=== PATIENT | female | born 1985 | race Caucasian/White ===

== ENCOUNTER 2020-08-08 11:02 | Inpatient (IN) | payer MEDICAID, OTHER ==
[~2020-08-08] VITALS: Ht 161.3 cm; Wt 59.4 kg
[~2020-08-08 11:02] MED LIST: QUET200T PO; QUET25TA PO
[2020-08-08 12:05] LABS: HEMATOCRIT 40.2 % (36-46); HEMOGLOBIN 13.4 g/dL (12.0-16.0); LYMPHOCYTES % (AUTO) 25.2 % (22.0-44.0); MEAN CORPUSCULAR HEMOGLOBIN 29.6 pg (26.0-34.0); MEAN CORPUSCULAR HGB CONC 33.4 G/dL (31.0-37.0); MEAN CORPUSCULAR VOLUME 89 fL (80-100); MONOCYTES # (AUTO) 0.7 K/uL (0.1-1.0); MONOCYTES % (AUTO) 9.2 % (2.0-9.0); NEUTROPHILS # (AUTO) 4.8 K/uL (1.8-7.7); NEUTROPHILS % (AUTO) 61.6 % (40.0-70.0); PLATELET COUNT (AUTO) 257 K/uL (150-450); RED BLOOD CELL COUNT(AUTO) 4.54 MIL/uL (4.00-5.20)
[2020-08-08 12:13] LABS: ANION GAP 5 mmol/L (8-16); CALCIUM, TOTAL 9.3 mg/dL (8.8-10.5); CARBON DIOXIDE 29 mmol/L (22-29); CHLORIDE 104 mmol/L (98-107); CREATININE 0.97 mg/dL (0.60-1.30); GLOMERULAR FILTR. RATE CALC > 60 mL/min (>60); GLUCOSE,RANDOM 74 mg/dL (70-110); POTASSIUM 3.7 mmol/L (3.5-5.1); SODIUM SERUM 138 mmol/L (136-145); UREA NITROGEN, BLOOD 15 mg/dL (7-18)
[2020-08-08 12:19] LABS: ALANINE AMINOTRANSFERASE 19 U/L (12-78); ALBUMIN 3.9 g/dL (3.4-5.0); ALKALINE PHOSPHATASE 58 U/L (46-116); ASPARTATE AMINOTRANSFERASE 13 U/L (15-37); BILIRUBIN,TOTAL 0.9 mg/dL (0.1-1.0); TOTAL PROTEIN, SERUM 7.6 g/dL (6.4-8.2)
[2020-08-08] MEDS ORDERED: QUEtiapine FUMARATE 100 MG TABLET PO ONE (17:00)
[2020-08-08 17:17] LABS: AMPHET/METH SCREEN,URINE POSITIVE (NEGATIVE); BARBITURATE SCREEN, URINE NEGATIVE (NEGATIVE); BENZODIAZEPINES SCREEN,URINE NEGATIVE (NEGATIVE); CANNABINOID SCREEN,URINE POSITIVE (NEGATIVE); COCAINE SCREEN,URINE NEGATIVE (NEGATIVE); METHADONE SCREEN, URINE NEGATIVE (NEGATIVE); OPIATE SCREEN,URINE NEGATIVE (NEGATIVE); PHENCYCLIDINE SCREEN,URINE NEGATIVE (NEGATIVE)
[2020-08-08] MEDS ORDERED: ZOLPIDEM TARTRATE 10 MG TABLET PO PRN (18:45)
[2020-08-08 20:14] LABS: HCG,QUANTITATIVE 1 mIU/mL (0-6)
[2020-08-08 21:40] LABS: COVID AG,FIA SOURCE NASOPHARYNGEAL
[2020-08-08] MEDS ORDERED: MAGNESIUM HYDROXIDE SUSPENSION 30 ML UDCUP PO PRN (22:15)
[2020-08-08] MEDS ORDERED: NICOTINE 14 MG/24 HOUR PATCH TD PRN (22:15)
[2020-08-08] MEDS ORDERED: ONDANSETRON HCL 4 MG TABLET PO PRN (22:15)
[2020-08-08] MEDS ORDERED: LOPERAMIDE HCL 2 MG CAPSULE PO PRN (22:15)
[2020-08-08] MEDS ORDERED: IBUPROFEN 400 MG TABLET PO PRN (22:15)
[2020-08-08] MEDS ORDERED: CloNIDine HCL 0.1 MG TABLET PO PRN (22:15)
[2020-08-08] MEDS ORDERED: ACETAMINOPHEN 325 MG TABLET PO PRN (22:15)
[2020-08-08] MEDS ORDERED: DOCUSATE SODIUM 100 MG CAPSULE PO PRN (22:15)
[2020-08-08] MEDS ORDERED: ALBUTEROL SULFATE HFA 90 MCG/PUFF 8 GM INHALER IH PRN (22:15)
[2020-08-08] MEDS ORDERED: GuaiFENesin/D-METHORPHAN [SUGAR-FREE] 200-20MG/10 ML SYRUP UDCUP PO PRN (22:15)
[2020-08-08] MEDS ORDERED: PETROLATUM,WHITE 28 GM JELLY TP PRN (22:15)
[2020-08-08] MEDS ORDERED: MAG HYDROX/AL HYDROX/SIMETH ES 30 ML SUSPENSION UDCUP PO PRN (22:15)
[2020-08-09 01:20] VITALS: BP 94/60
[2020-08-09] MEDS ORDERED: INFLUENZA VIRUS VACCINE QVS 2020-21 (6MO+)/PF 60 MCG/0.5 ML SYRINGE IM ONE (03:30)
[2020-08-09 08:09] VITALS: BP 109/67
[2020-08-09] MEDS: LORazepam 2 MG TABLET PO PRN (13:23)
[2020-08-09] MEDS: HALOPERIDOL 5 MG TABLET PO PRN (13:23)
[2020-08-09] MEDS: QUEtiapine FUMARATE 100 MG TABLET PO SCH (16:24)
[2020-08-09 18:38] VITALS: BP 122/66
[2020-08-09] MEDS: QUEtiapine FUMARATE 200 MG TABLET PO SCH (20:30)
[2020-08-10 01:53] VITALS: BP 120/67
[2020-08-10 08:07] VITALS: BP_SYST 107; BP_SYST 134; BP_DIAS 67; BP_DIAS 82
[2020-08-10] MEDS: QUEtiapine FUMARATE 100 MG TABLET PO SCH ×2 (08:50→17:00)
[2020-08-10 16:14] VITALS: BP 109/60
[2020-08-10] MEDS: CEPHALEXIN MONOHYDRATE 500 MG CAPSULE PO SCH (18:49)
[2020-08-10] MEDS: SULFAMETHOX/TRIMETH DS 800-160 MG/TABLET PO SCH (18:49)
[2020-08-10] MEDS: QUEtiapine FUMARATE 200 MG TABLET PO SCH (20:25)
[2020-08-11 04:57] VITALS: BP 102/65
[2020-08-11] MEDS: SULFAMETHOX/TRIMETH DS 800-160 MG/TABLET PO SCH ×2 (08:06→16:01)
[2020-08-11] MEDS: CEPHALEXIN MONOHYDRATE 500 MG CAPSULE PO SCH ×3 (08:06→16:01)
[2020-08-11] MEDS: QUEtiapine FUMARATE 100 MG TABLET PO SCH ×2 (08:06→16:01)
[2020-08-11 08:16] VITALS: BP 120/74
[2020-08-11 16:06] VITALS: BP 108/61
[2020-08-11] MEDS: HALOPERIDOL 5 MG TABLET PO PRN (16:14)
[2020-08-11] MEDS: LORazepam 2 MG TABLET PO PRN (16:14)
[2020-08-11] MEDS: BACITRACIN 28 GM OINTMENT TP SCH (20:14)
[2020-08-11] MEDS: QUEtiapine FUMARATE 200 MG TABLET PO SCH (20:23)
[2020-08-12 00:54] VITALS: BP 102/65
[2020-08-12 08:11] VITALS: BP 106/63
[2020-08-12] MEDS: CEPHALEXIN MONOHYDRATE 500 MG CAPSULE PO SCH ×3 (08:24→16:10)
[2020-08-12] MEDS: SULFAMETHOX/TRIMETH DS 800-160 MG/TABLET PO SCH ×2 (08:24→16:09)
[2020-08-12] MEDS: QUEtiapine FUMARATE 100 MG TABLET PO SCH ×2 (08:24→16:10)
[2020-08-12] MEDS: BACITRACIN 28 GM OINTMENT TP SCH ×2 (08:25→17:19)
[2020-08-12 16:10] VITALS: BP 121/77
[2020-08-12] MEDS: QUEtiapine FUMARATE 200 MG TABLET PO SCH (21:00)
[2020-08-13 01:21] VITALS: BP 114/72
[2020-08-13 08:04] LABS: CHOL/HDL RATIO 3.6 (3.9-5.7)
[2020-08-13] MEDS: SULFAMETHOX/TRIMETH DS 800-160 MG/TABLET PO SCH ×2 (08:14→16:28)
[2020-08-13] MEDS: QUEtiapine FUMARATE 100 MG TABLET PO SCH ×2 (08:14→16:29)
[2020-08-13] MEDS: CEPHALEXIN MONOHYDRATE 500 MG CAPSULE PO SCH ×3 (08:14→16:28)
[2020-08-13 08:20] VITALS: BP 118/72
[2020-08-13] MEDS: BACITRACIN 28 GM OINTMENT TP SCH ×2 (08:23→16:28)
[2020-08-13] MEDS: LORazepam 2 MG TABLET PO PRN (12:47)
[2020-08-13] MEDS: HALOPERIDOL 5 MG TABLET PO PRN (12:47)
[2020-08-13 17:47] VITALS: BP 121/80
[2020-08-13] MEDS: QUEtiapine FUMARATE 200 MG TABLET PO SCH (20:20)
[2020-08-14 01:43] VITALS: BP 120/76
[2020-08-14 08:13] VITALS: BP 111/58
[2020-08-14] MEDS: SULFAMETHOX/TRIMETH DS 800-160 MG/TABLET PO SCH ×2 (08:16→16:42)
[2020-08-14] MEDS: QUEtiapine FUMARATE 100 MG TABLET PO SCH ×2 (08:16→16:42)
[2020-08-14] MEDS: CEPHALEXIN MONOHYDRATE 500 MG CAPSULE PO SCH ×3 (08:16→16:42)
[2020-08-14] MEDS: BACITRACIN 28 GM OINTMENT TP SCH ×2 (08:16→16:46)
[2020-08-14 16:22] VITALS: BP 118/75
[2020-08-14] MEDS: QUEtiapine FUMARATE 200 MG TABLET PO SCH (19:59)
[2020-08-15 05:50] VITALS: BP 124/84
[2020-08-15 08:27] VITALS: BP 106/70
[2020-08-15] MEDS: CEPHALEXIN MONOHYDRATE 500 MG CAPSULE PO SCH ×3 (08:54→16:03)
[2020-08-15] MEDS: QUEtiapine FUMARATE 100 MG TABLET PO SCH ×2 (08:54→16:03)
[2020-08-15] MEDS: SULFAMETHOX/TRIMETH DS 800-160 MG/TABLET PO SCH ×2 (08:54→16:03)
[2020-08-15] MEDS: BACITRACIN 28 GM OINTMENT TP SCH ×2 (09:34→16:03)
[2020-08-15] MEDS: LORazepam 2 MG TABLET PO PRN (15:57)
[2020-08-15 16:16] VITALS: BP 119/78
[2020-08-15] MEDS: QUEtiapine FUMARATE 200 MG TABLET PO SCH (20:18)
[2020-08-16 01:57] VITALS: BP 110/71
[2020-08-16 08:29] VITALS: BP 117/68
[2020-08-16] MEDS: FOLIC ACID 1 MG TABLET PO SCH (10:06)
[2020-08-16] MEDS: MULTIVITAMINS WITH MINERALS, THERAPEUTIC TABLET PO SCH (10:06)
[2020-08-16] MEDS: SULFAMETHOX/TRIMETH DS 800-160 MG/TABLET PO SCH ×2 (10:06→17:34)
[2020-08-16] MEDS: QUEtiapine FUMARATE 100 MG TABLET PO SCH ×2 (10:06→17:34)
[2020-08-16] MEDS: CEPHALEXIN MONOHYDRATE 500 MG CAPSULE PO SCH ×3 (10:06→17:34)
[2020-08-16] MEDS: BACITRACIN 28 GM OINTMENT TP SCH ×2 (10:35→17:34)
[2020-08-16] MEDS: THIAMINE 100 MG TABLET PO SCH (11:49)
[2020-08-16] MEDS: LORazepam 2 MG TABLET PO PRN (14:02)
[2020-08-16] MEDS: HALOPERIDOL 5 MG TABLET PO PRN (14:02)
[2020-08-16 17:32] VITALS: BP 103/66
[2020-08-16] MEDS: QUEtiapine FUMARATE 200 MG TABLET PO SCH (20:38)
[2020-08-17 01:08] VITALS: BP 100/71
[2020-08-17] MEDS: THIAMINE 100 MG TABLET PO SCH (08:26)
[2020-08-17] MEDS: FOLIC ACID 1 MG TABLET PO SCH (08:26)
[2020-08-17] MEDS: MULTIVITAMINS WITH MINERALS, THERAPEUTIC TABLET PO SCH (08:26)
[2020-08-17] MEDS: QUEtiapine FUMARATE 100 MG TABLET PO SCH ×2 (08:26→16:35)
[2020-08-17] MEDS: CEPHALEXIN MONOHYDRATE 500 MG CAPSULE PO SCH ×3 (08:26→16:35)
[2020-08-17] MEDS: SULFAMETHOX/TRIMETH DS 800-160 MG/TABLET PO SCH ×2 (08:26→16:35)
[2020-08-17] MEDS: LORazepam 2 MG TABLET PO PRN (08:26)
[2020-08-17] MEDS: HALOPERIDOL 5 MG TABLET PO PRN (08:27)
[2020-08-17 08:35] VITALS: BP 112/74
[2020-08-17] MEDS: BACITRACIN 28 GM OINTMENT TP SCH ×2 (09:00→16:35)
[2020-08-17 17:00] VITALS: BP 103/61
[2020-08-17] MEDS: QUEtiapine FUMARATE 200 MG TABLET PO SCH (20:28)
[2020-08-18 01:25] VITALS: BP 101/69
[2020-08-18] MEDS: QUEtiapine FUMARATE 100 MG TABLET PO SCH ×2 (08:05→16:48)
[2020-08-18] MEDS: MULTIVITAMINS WITH MINERALS, THERAPEUTIC TABLET PO SCH (08:05)
[2020-08-18] MEDS: FOLIC ACID 1 MG TABLET PO SCH (08:05)
[2020-08-18] MEDS: THIAMINE 100 MG TABLET PO SCH (08:05)
[2020-08-18 08:20] VITALS: BP 109/64
[2020-08-18] MEDS: BACITRACIN 28 GM OINTMENT TP SCH ×2 (09:11→16:48)
[2020-08-18 16:05] VITALS: BP 113/80
[2020-08-18] MEDS: LORazepam 2 MG TABLET PO PRN (17:12)
[2020-08-18] MEDS: QUEtiapine FUMARATE 200 MG TABLET PO SCH (20:48)
[2020-08-18] MEDS ORDERED: QUET200T PO (23:06)
[2020-08-18] MEDS ORDERED: QUET100T PO (23:06)
[2020-08-19 01:10] VITALS: BP 105/78
[2020-08-19 08:30] VITALS: BP 117/64
== END 2020-08-19 09:35 | disposition home or self-care (01) | DRG 750 ==
LOC: EMS 11:03 → B3A 18:39 → UNDOADMIN 19:42 → B3A 19:42
PROVIDERS: ADMIT Psychiatry & Neurology Child & Adolescent Psychiatry; ATTEND Psychiatry & Neurology Child & Adolescent Psychiatry
DX: F25.0 Schizoaffective disorder, bipolar type (principal); K59.00 Constipation, unspecified; R45.851 Suicidal ideations; F17.210 Nicotine dependence, cigarettes, uncomplicated; F32.9 Major depressive disorder, single episode, unspecified; F41.9 Anxiety disorder, unspecified; I95.9 Hypotension, unspecified; F10.10 Alcohol abuse, uncomplicated; F19.10 Other psychoactive substance abuse, uncomplicated; F99 Mental disorder, not otherwise specified; Z20.828 Contact with and (suspected) exposure to other viral communicable diseases; Z59.0 Homelessness; Z88.8 Allergy status to other drugs, medicaments and biological substances; Z28.21 Immunization not carried out because of patient refusal
CPT/HCPCS: 87070; 87205; 87426; G0480

== ENCOUNTER 2020-10-09 16:45 | Inpatient (IN) | payer MEDICAID ==
[~2020-10-09] VITALS: Ht 160 cm; Wt 53.8 kg
[~2020-10-09 16:45] MED LIST changes: +QUET100T PO; -QUET25TA PO
[2020-10-09] MEDS ORDERED: ZOLPIDEM TARTRATE 10 MG TABLET PO PRN (20:00)
[2020-10-09 20:50] VITALS: BP 102/55
[2020-10-09] MEDS ORDERED: INFLUENZA VIRUS VACCINE QVS 2020-21 (6MO+)/PF 60 MCG/0.5 ML SYRINGE IM ONE (21:00)
[2020-10-10 01:36] VITALS: BP 102/74
[2020-10-10] MEDS ORDERED: MAGNESIUM HYDROXIDE SUSPENSION 30 ML UDCUP PO PRN (07:15)
[2020-10-10] MEDS ORDERED: PETROLATUM,WHITE 28 GM JELLY TP PRN (07:15)
[2020-10-10] MEDS ORDERED: ONDANSETRON HCL 4 MG TABLET PO PRN (07:15)
[2020-10-10] MEDS ORDERED: NICOTINE 14 MG/24 HOUR PATCH TD PRN (07:15)
[2020-10-10] MEDS ORDERED: ACETAMINOPHEN 325 MG TABLET PO PRN (07:15)
[2020-10-10] MEDS ORDERED: LOPERAMIDE HCL 2 MG CAPSULE PO PRN (07:15)
[2020-10-10] MEDS ORDERED: MAG HYDROX/AL HYDROX/SIMETH ES 30 ML SUSPENSION UDCUP PO PRN (07:15)
[2020-10-10] MEDS ORDERED: GuaiFENesin/D-METHORPHAN [SUGAR-FREE] 200-20MG/10 ML SYRUP UDCUP PO PRN (07:15)
[2020-10-10] MEDS ORDERED: CloNIDine HCL 0.1 MG TABLET PO PRN (07:15)
[2020-10-10] MEDS ORDERED: DOCUSATE SODIUM 100 MG CAPSULE PO PRN (07:15)
[2020-10-10] MEDS ORDERED: ALBUTEROL SULFATE HFA 90 MCG/PUFF 8 GM INHALER IH PRN (07:15)
[2020-10-10 08:12] VITALS: BP 113/65
[2020-10-10 16:09] VITALS: BP 109/68
[2020-10-10] MEDS: QUEtiapine FUMARATE 100 MG TABLET PO SCH (17:00)
[2020-10-10] MEDS: QUEtiapine FUMARATE 200 MG TABLET PO SCH (20:36)
[2020-10-11 00:39] VITALS: BP 100/71
[2020-10-11 08:15] VITALS: BP 115/68
[2020-10-11 08:50] LABS: BASOPHILS % (AUTO) 0.4 % (0.0-2.0); EOSINOPHILS % (AUTO) 1.6 % (1.0-6.0); HEMATOCRIT 39.3 % (36-46); HEMOGLOBIN 13.2 g/dL (12.0-16.0); HEMOGLOBIN A1C 4.8 % (3.8-5.6); LYMPHOCYTES # (AUTO) 0.6 K/uL (1.0-4.8); LYMPHOCYTES % (AUTO) 9.3 % (22.0-44.0); MEAN CORPUSCULAR HEMOGLOBIN 30.2 pg (26.0-34.0); MEAN CORPUSCULAR HGB CONC 33.6 G/dL (31.0-37.0); MEAN CORPUSCULAR VOLUME 90 fL (80-100); MONOCYTES # (AUTO) 0.3 K/uL (0.1-1.0); MONOCYTES % (AUTO) 3.8 % (2.0-9.0); NEUTROPHILS # (AUTO) 5.8 K/uL (1.8-7.7); NEUTROPHILS % (AUTO) 84.9 % (40.0-70.0); PLATELET COUNT (AUTO) 223 K/uL (150-450); RED BLOOD CELL COUNT(AUTO) 4.37 MIL/uL (4.00-5.20); RED CELL DISTRIBUTION WIDTH 13.2 % (11.5-14.5)
[2020-10-11] MEDS: QUEtiapine FUMARATE 100 MG TABLET PO SCH ×2 (09:00→16:55)
[2020-10-11 10:01] LABS: ALANINE AMINOTRANSFERASE 18 U/L (12-78); ALBUMIN 3.4 g/dL (3.4-5.0); ALKALINE PHOSPHATASE 56 U/L (46-116); ANION GAP 4 mmol/L (8-16); ASPARTATE AMINOTRANSFERASE 12 U/L (15-37); BILIRUBIN,TOTAL 0.4 mg/dL (0.1-1.0); CALCIUM, TOTAL 8.2 mg/dL (8.8-10.5); CARBON DIOXIDE 26 mmol/L (22-29); CHLORIDE 102 mmol/L (98-107); CHOLESTEROL 160 mg/dL (131-200); CREATININE 0.85 mg/dL (0.60-1.30); FREE T4 (FREE THYROXINE) 0.87 ng/dL (0.76-1.46); GLOMERULAR FILTR. RATE CALC > 60 mL/min (>60); GLUCOSE,RANDOM 195 mg/dL (70-110); HCG,QUANTITATIVE < 1 mIU/mL (0-6); HDL CHOLESTEROL 53 mg/dL (40-60); LDL CHOL (CALC.) 90 mg/dL (0-130); SODIUM SERUM 132 mmol/L (136-145); THYROID STIMULATING HORMONE 0.16 uIU/mL (0.36-3.74); TOTAL PROTEIN, SERUM 6.8 g/dL (6.4-8.2); TRIGLYCERIDES 87 mg/dL (15-150); UREA NITROGEN, BLOOD 9 mg/dL (7-18)
[2020-10-11] MEDS: HALOPERIDOL 5 MG TABLET PO PRN (13:00)
[2020-10-11] MEDS: LORazepam 2 MG TABLET PO PRN (13:00)
[2020-10-11 16:12] VITALS: BP 110/70
[2020-10-11] MEDS: QUEtiapine FUMARATE 200 MG TABLET PO SCH (20:48)
[2020-10-12 06:07] VITALS: BP 102/78
[2020-10-12 08:16] VITALS: BP 116/71
[2020-10-12] MEDS: QUEtiapine FUMARATE 100 MG TABLET PO SCH ×3 (09:00→16:47)
[2020-10-12] MEDS: LORazepam 2 MG TABLET PO PRN ×2 (12:20→16:56)
[2020-10-12 16:11] VITALS: BP 118/64
[2020-10-12] MEDS: QUEtiapine FUMARATE 200 MG TABLET PO SCH (20:32)
[2020-10-13 01:35] VITALS: BP 110/66
[2020-10-13 08:20] VITALS: BP 118/65
[2020-10-13] MEDS: QUEtiapine FUMARATE 100 MG TABLET PO SCH ×2 (08:43→16:55)
[2020-10-13] MEDS: LORazepam 2 MG TABLET PO PRN (08:43)
[2020-10-13 16:06] VITALS: BP 116/68
[2020-10-13] MEDS: QUEtiapine FUMARATE 200 MG TABLET PO SCH (20:35)
[2020-10-14] MEDS: MUPIROCIN CALCIUM 2% 22 GM OINTMENT NASAL SCH ×2 (08:11→16:53)
[2020-10-14] MEDS: QUEtiapine FUMARATE 100 MG TABLET PO SCH ×2 (08:12→16:52)
[2020-10-14 08:19] VITALS: BP 118/71
[2020-10-14 13:36] VITALS: BP 113/66
[2020-10-14] MEDS: IBUPROFEN 400 MG TABLET PO PRN (13:36)
[2020-10-14] MEDS: LORazepam 2 MG TABLET PO PRN (14:44)
[2020-10-14 16:16] VITALS: BP 148/79
[2020-10-14] MEDS: QUEtiapine FUMARATE 200 MG TABLET PO SCH (20:35)
[2020-10-15 06:50] VITALS: BP 108/59
[2020-10-15] MEDS: IBUPROFEN 400 MG TABLET PO PRN (06:54)
[2020-10-15] MEDS ORDERED: LORATADINE 10 MG TABLET PO PRN (07:15)
[2020-10-15] MEDS: QUEtiapine FUMARATE 100 MG TABLET PO SCH ×2 (08:17→17:41)
[2020-10-15] MEDS: MUPIROCIN CALCIUM 2% 22 GM OINTMENT NASAL SCH ×2 (08:17→17:41)
[2020-10-15 08:31] VITALS: BP 123/84
[2020-10-15] MEDS: LORazepam 2 MG TABLET PO PRN (11:41)
[2020-10-15] MEDS: HALOPERIDOL 5 MG TABLET PO PRN (11:41)
[2020-10-15 16:20] VITALS: BP 110/60
[2020-10-15] MEDS: QUEtiapine FUMARATE 200 MG TABLET PO SCH (21:20)
[2020-10-16 05:31] VITALS: BP 115/65
[2020-10-16] MEDS: IBUPROFEN 400 MG TABLET PO PRN (05:54)
[2020-10-16] MEDS: MUPIROCIN CALCIUM 2% 22 GM OINTMENT NASAL SCH ×2 (08:39→16:37)
[2020-10-16] MEDS: LORazepam 2 MG TABLET PO PRN (08:40)
[2020-10-16] MEDS: QUEtiapine FUMARATE 100 MG TABLET PO SCH (08:40)
[2020-10-16 08:49] VITALS: BP 109/69
[2020-10-16] MEDS ORDERED: QUEtiapine FUMARATE 200 MG TABLET PO SCH (09:00)
[2020-10-16] MEDS ORDERED: QUEtiapine FUMARATE 100 MG TABLET PO ONE (10:15)
[2020-10-16] MEDS: QUEtiapine FUMARATE 200 MG TABLET PO SCH ×2 (16:37→20:20)
[2020-10-16 17:43] VITALS: BP 100/66
[2020-10-17 04:36] VITALS: BP 105/68
[2020-10-17] MEDS: LORazepam 2 MG TABLET PO PRN (07:09)
[2020-10-17] MEDS: HALOPERIDOL 5 MG TABLET PO PRN (07:09)
[2020-10-17] MEDS: MUPIROCIN CALCIUM 2% 22 GM OINTMENT NASAL SCH ×2 (08:51→16:39)
[2020-10-17] MEDS: QUEtiapine FUMARATE 200 MG TABLET PO SCH ×3 (08:51→20:29)
[2020-10-17 16:27] VITALS: BP 110/70
[2020-10-18 00:45] VITALS: BP 71/17
[2020-10-18 08:20] VITALS: BP 124/74
[2020-10-18] MEDS: LORazepam 2 MG TABLET PO PRN (08:25)
[2020-10-18] MEDS: HALOPERIDOL 5 MG TABLET PO PRN (08:26)
[2020-10-18] MEDS: QUEtiapine FUMARATE 200 MG TABLET PO SCH ×3 (08:26→20:12)
[2020-10-18] MEDS: MUPIROCIN CALCIUM 2% 22 GM OINTMENT NASAL SCH ×2 (10:16→16:48)
[2020-10-18 17:30] VITALS: BP 100/65
[2020-10-19 00:40] VITALS: BP 102/78
[2020-10-19 08:16] VITALS: BP 120/70
[2020-10-19] MEDS: QUEtiapine FUMARATE 200 MG TABLET PO SCH ×3 (08:28→20:16)
[2020-10-19] MEDS: HALOPERIDOL 5 MG TABLET PO PRN ×2 (08:29→16:25)
[2020-10-19] MEDS: LORazepam 2 MG TABLET PO PRN ×2 (08:29→16:25)
[2020-10-19 16:39] VITALS: BP 106/62
[2020-10-20 01:11] VITALS: BP 102/65
[2020-10-20] MEDS: LORazepam 2 MG TABLET PO PRN (08:10)
[2020-10-20] MEDS: QUEtiapine FUMARATE 200 MG TABLET PO SCH ×3 (08:10→20:51)
[2020-10-20 08:26] VITALS: BP 106/66
[2020-10-20 16:57] VITALS: BP 102/77
[2020-10-21 03:06] VITALS: BP 108/65
[2020-10-21 08:08] VITALS: BP 120/70
[2020-10-21] MEDS: QUEtiapine FUMARATE 200 MG TABLET PO SCH ×3 (08:10→20:30)
[2020-10-21] MEDS: LORazepam 2 MG TABLET PO PRN (08:11)
[2020-10-21 16:04] VITALS: BP 111/65
[2020-10-22 01:31] VITALS: BP 72/17
[2020-10-22] MEDS: QUEtiapine FUMARATE 200 MG TABLET PO SCH ×3 (08:08→21:00)
[2020-10-22] MEDS: LORazepam 2 MG TABLET PO PRN ×2 (08:09→14:07)
[2020-10-22 08:19] VITALS: BP 117/74
[2020-10-22] MEDS: HALOPERIDOL 5 MG TABLET PO PRN (14:07)
[2020-10-22 16:04] VITALS: BP 119/65
[2020-10-23 00:17] VITALS: BP 114/73
[2020-10-23 08:03] VITALS: BP 114/82
[2020-10-23] MEDS: LORazepam 2 MG TABLET PO PRN (08:18)
[2020-10-23] MEDS: QUEtiapine FUMARATE 200 MG TABLET PO SCH ×3 (08:18→20:51)
[2020-10-23 16:04] VITALS: BP 105/67
[2020-10-24 01:34] VITALS: BP 102/64
[2020-10-24] MEDS: QUEtiapine FUMARATE 200 MG TABLET PO SCH ×3 (08:17→20:28)
[2020-10-24] MEDS: LORazepam 2 MG TABLET PO PRN (08:18)
[2020-10-24 08:26] VITALS: BP 114/71
[2020-10-24 10:19] LABS: ANION GAP 6 mmol/L (8-16); CALCIUM, TOTAL 8.4 mg/dL (8.8-10.5); CARBON DIOXIDE 27 mmol/L (22-29); CHLORIDE 103 mmol/L (98-107); CREATININE 0.68 mg/dL (0.60-1.30); GLOMERULAR FILTR. RATE CALC > 60 mL/min (>60); GLUCOSE,RANDOM 105 mg/dL (70-110); POTASSIUM 3.9 mmol/L (3.5-5.1); SODIUM SERUM 136 mmol/L (136-145); UREA NITROGEN, BLOOD 12 mg/dL (7-18)
[2020-10-24 14:13] LABS: COVID AG,FIA SOURCE NASOPHARYNGEAL
[2020-10-24 16:08] VITALS: BP 121/60
[2020-10-25 01:52] VITALS: BP 124/63
[2020-10-25 08:08] VITALS: BP 125/84
[2020-10-25] MEDS: QUEtiapine FUMARATE 200 MG TABLET PO SCH (08:26)
[2020-10-25] MEDS: LORazepam 2 MG TABLET PO PRN (08:26)
[2020-10-25] MEDS ORDERED: QUET200T29 PO (09:29)
== END 2020-10-25 12:55 | disposition home or self-care (01) | DRG 753 ==
LOC: B3A 19:50
PROVIDERS: ADMIT Psychiatry & Neurology Child & Adolescent Psychiatry; ATTEND Psychiatry & Neurology Child & Adolescent Psychiatry
DX: F31.5 Bipolar disorder, current episode depressed, severe, with psychotic features (principal); R45.851 Suicidal ideations; Z79.899 Other long term (current) drug therapy; E87.1 Hypo-osmolality and hyponatremia; F19.10 Other psychoactive substance abuse, uncomplicated; F12.90 Cannabis use, unspecified, uncomplicated; Z88.8 Allergy status to other drugs, medicaments and biological substances; F41.9 Anxiety disorder, unspecified; I95.9 Hypotension, unspecified; Z20.828 Contact with and (suspected) exposure to other viral communicable diseases; Z28.21 Immunization not carried out because of patient refusal
CPT/HCPCS: 83036; 84439; 84443; 87081; 87426